=== PATIENT | female | born 1980 | race Caucasian/White ===

== ENCOUNTER 2022-04-21 06:41 | Inpatient (IN) | payer OTHER ==
[~2022-04-21] VITALS: Ht 160 cm; Wt 66.5 kg
[~2022-04-21 06:41] MED LIST: ALBIPROI INH; ALBU90I INH; ALBU90OI; ALBU90OI INH; ALBU90OI6 INH; ALBU90OI61 INH; AMOX500 PO; AZIT250 PO; CEPH500 PO; CODGUAEL PO; DIPH50 PO; DOXY100 PO; ERYES400 PO; HYDACE5 PO; IBUP800 PO; INHALERS; METPRE4DP PO; NAPR500 PO; NAPR550 PO; OXYACE5T PO; PENVK500 PO; PRED10 PO; PRED20 PO; PROACE100 PO; PROCODE120 PO; RXANTBENOT AU; RXCLIN PO; RXNAPNA550 PO; RXOXYACE PO; TRAM50 PO
[2022-04-21 07:04] LABS: BASOPHILS ABSOLUTE AUTO 0.22 K/mm3 (0.00-0.23); BASOPHILS PERCENT AUTO 2 % (0-2); EOSINOPHILS ABSOLUTE AUTO 1.54 K/mm3 (0.00-0.68); EOSINOPHILS PERCENT AUTO 11 % (0-6); Hematocrit 43.7 % (33.0-51.0); Hemoglobin 14.5 g/dL (11.5-16.0); IMMATURE GRAN ABSOLUTE AUTO 0.04 K/mm3 (0.00-0.10); IMMATURE GRAN PERCENT AUTO 0 % (0-1); LYMPHOCYTES ABSOLUTE AUTO 3.73 K/mm3 (0.84-5.20); LYMPHOCYTES PERCENT AUTO 27 % (21-46); MONOCYTES ABSOLUTE AUTO 1.02 K/mm3 (0.16-1.47); MONOCYTES PERCENT AUTO 8 % (4-13); Mean Corpuscular HGB 29.8 pg (26.0-34.0); Mean Corpuscular HGB Conc 33.2 g/dL (31.5-36.5); Mean Corpuscular Volume 90 fL (80-100); Mean Platelet Volume 9.9 fL (9.1-12.4); NEUTROPHILS ABSOLUTE AUTO 7.09 K/mm3 (1.96-9.15); NEUTROPHILS PERCENT AUTO 52 % (41-73); Platelet Count 401 K/mm3 (150-400); RDW Coefficient Variation 12.3 % (11.7-14.2); RDW Standard Deviation 40.8 fL (35.1-46.3); Red Blood Cell Count 4.87 M/mm3 (3.80-5.20); White Blood Cell Count 13.64 K/mm3 (4.00-11.30)
[2022-04-21 07:18] LABS: Bun/Creatinine Ratio 13.6 (12.0-20.0); Calcium, Blood 8.9 mg/dL (8.5-10.1); Creatinine, Blood 0.81 mg/dL (0.40-1.00)
[2022-04-21 10:26] LABS: Influenza A, PCR NEGATIVE (NEGATIVE); Influenza B, PCR NEGATIVE (NEGATIVE); Resp Syncytial Virus, PCR NEGATIVE (NEGATIVE); SARS-Cov-2 (COVID-19) PCR, MMC NEGATIVE (NEGATIVE)
[2022-04-21] MEDS ORDERED: Amoxicillin500 MG PO (13:28)
[2022-04-21] MEDS ORDERED: IPRAT-ALBUT 0.5-3 ML IH (13:29)
--- NOTE | 2022-04-21 19:04 | NUR ---
PATIENT ADMIT TO PCU AROUND 1400. ABLE TO STAND AND TRANSFER TO BED. SOB WITH EXERCTION. NEURO WNL. SOME INTERMIT ANXIETY. DENIES NEED FOR MEDICATION THIS EVENING FOR THIS RN. AT TIMES SLOW TO RESPOND. ON 2L NASAL CANNULA SATING HIGH 90'S. LUNGS SOUNDING TIGHT AND DIM. RESP CALLED FOR BREATHING TREATMENTS. UP TO BSC WITH ONE PERSON ASSIT. TELE SHOWING SINUS TACH WITH HR 100-110'S. DENIES CHEST PAIN/PRESSURE. BP STABLE. PPP. NO SIGNS OF EDEMA. NO ISSUES EATING OR VOIDING. MOM AT BEDSIDE AND UPDATED. PATIENT HAD RECENT DAIGNOSIS OF TOOTH ABSCESS, PO ABX ORDERED PER HOME SCHEDULE. ADMISSION AND MED REC COMPLETED. LR INFUSING X1 BAG PER EMAR. ORIENTED TO ROOM/UNIT. CALL LIGHT IN REACH WILL CONTINUE TO MONITOR AND REPORT OFF TO ONCOMING RN.
--- NOTE | 2022-04-22 00:31 | NUR ---
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 THIS RN WENT TO CHECK ON PATIENT AND SHE WAS TACHYPNEIC WITH RR IN THE HIGH 20'S TO LOW 30'S, TACHYCARDIC WITH RATE IN 120'S, SPO2 96% WITH 2L NC AND ABLE TO SPEAK IN 4-5 WORD SENTENCES. PATIENT REQUESTED A BREATHING TREATMENT-RT NOTIFIED. WHILE WAITING FOR RT, PATIENT BEGAN COUGHING AND SPO2 DECREASED TO 91% AT LOWEST, RR MID TO HIGH 30'S, HR INCREASED TO HIGH 130'S AND SPEAKING IN 1-2 WORD SENTENCES. O2 INCREASED TO 6L NC AND ORDERS RECEIVED FROM DR. ALFORD OF ATIVAN 0.5MG IV X 1. RT ARRIVED TO BEDSIDE WITH ALBUTEROL NEBULIZER TREATMENT. PATIENT BECAME INCREASINGLY ANXIOUS AND CONTINUED WITH RR IN HIGH 30'S. ASTRONAUTICAL ENGINEER CALLED. DR. ALFORD AT BEDSIDE WITH CHARGE NURSE AND NURSING SALES ASSISTANT DISPLAYS. ORDERS RECEIVED FOR BIPAP, SECOND DOSE OF ATIVAN 0.5MG IV X 1, SOLUMEDROL 125MG IV X 1, AND HOUR LONG BREATHING TREATMENT. AT THIS TIME, DR. SANDS ARRIVED TO BEDSIDE TO TAKE OVER FROM DR. ALFORD. PATIENT BEGAN CALMING DOWN, SPO2 INCREASED TO 98-100%, RR DOWN TO MID TO HIGH 20'S, HR DECREASED TO 120'S, NODS HEAD "YES" WHEN ASKED IF SHE IS FEELING MORE EASE OF BREATHING. DR. SANDS ORDERED PATIENT TO BE MOVED TO ICU, BUT LATER RETRACTED THIS ORDER DUE TO PATIENT IMPROVEMENT. NEW ORDERS OBTAINED FOR ATIVAN 0.5MG IV Q4H PRN FOR ANXIETY. PATIENT RESTING QUIETLY IN BED WITH BIPAP IN PLACE 04/09 45% FIO2, SPO2 100% AND RR 20-21.
--- NOTE | 2022-04-22 06:01 | NUR ---
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
--- NOTE | 2022-04-22 18:37 | NUR ---
Shift Summary Pt alert, oriented x4, calm and coopertive with care. Pt resting in bed, up sba to bathroom. Pt denies pain, chest pain/pressure, sob, nasuea, dizziness and numb/tingling. Pt tele sinus 110-120's, bp stable. Pt started at 3l o2 via nc, titrated down to ra, spo2 >90% t/o shift. Pt receiving po antibiotics, iv steroids. No other acute changes noted. Will conitnue to monitor unitl report given to oncoming rn.
--- NOTE | 2022-04-22 19:40 | NUR ---
ASSESSMENT/ ASSUMED CARE PT SITTING UP IN BED RECEIVING UDN TX FROM RT. LUNG DECREASED WITH END EXP WHEEZE. PT ON ROOMAIR. RESP EVEN. PT C/O SOB WITH COUGH. PT TO BE MED WITH COUGH MED. HEART RATE ELEVATED. DENIES CHEST PAIN OR PRESSURE. BP STABLE. NO EDEMA. IV RIGHT FOREARM DC'D INTACT DUE TO PAIN WITH FLUSHING. IV LEFT HAND SALINE LOCKED, FLUSHED WITHOUT DIFFICULTY. BT+ DENEIS N/V. PT MOVING AND TURNING SELF IN BED. CALL LIGHT AT BEDSIDE.
[2022-04-23 04:23] LABS: Hematocrit 42.3 % (33.0-51.0); Hemoglobin 14.2 g/dL (11.5-16.0); Mean Corpuscular HGB 29.8 pg (26.0-34.0); Mean Corpuscular HGB Conc 33.6 g/dL (31.5-36.5); Mean Corpuscular Volume 89 fL (80-100); Mean Platelet Volume 9.9 fL (9.1-12.4); Platelet Count 363 K/mm3 (150-400); RDW Coefficient Variation 13.1 % (11.7-14.2); RDW Standard Deviation 42.4 fL (35.1-46.3); Red Blood Cell Count 4.77 M/mm3 (3.80-5.20); White Blood Cell Count 25.57 K/mm3 (4.00-11.30)
[2022-04-23 04:42] LABS: Bun/Creatinine Ratio 23.7 (12.0-20.0); Calcium, Blood 9.1 mg/dL (8.5-10.1); Creatinine, Blood 0.63 mg/dL (0.40-1.00); Potassium, Blood 4.1 mmol/L (3.5-5.5)
--- NOTE | 2022-04-23 05:09 | NUR ---
SHIFT SUMMARY PT RESTED QUIETLY DURING THE NIGHT. VSS. PT REMAINED ON ROOMAIR. UP TO THE BATHROOM ADLIB. IV TO RIGHT FOREARM DC'D INTACT. NO ACUTE CHANGE DURING THE NIGHT. REPORT TO THE ON COMING NURSE.
--- NOTE | 2022-04-23 07:53 | NUR ---
Am note Pt alert, orineted x4; anxious but cooperative with care. Pt up sba in room. Pt denies pain, chest pain/pressure, sob, coughing, nausea, dizziness and numb/tingling. Tele sinus tach 100's, bp stable. Spo2 >90% on ra, breahting even and unlabored, denies cough this am, fan continuosly on face. Abd soft, nontender, normoactive bt. No edema noted. Vss. No other acute changes noted. Will continue to monitor.
[2022-04-23] MEDS ORDERED: AIRDUO DIGIHAL1 EAC2 INH (12:48)
[2022-04-23] MEDS ORDERED: PRED20 PO (12:49)
--- NOTE | 2022-04-23 14:18 | NUR ---
Discharge note No acute changes noted t/o shift. Vss. Educated pt on discharge instructions, follow up appointments and prescriptions. Called medications to [facility] in [place], per pt request. Pt educdated to follow up with pcp, Dr Esau Melissa. Pt left on foot.
== END 2022-04-23 14:06 | disposition home or self-care (01) | DRG 189 ==
LOC: ER 06:41 → ERHOLD 09:03 → PCU 09:03
PROVIDERS: Emergency Medicine; ADMIT Internal Medicine
PROC: 5A09357 Assistance with Respiratory Ventilation, Less than 24 Consecutive Hours, Continuous Positive Airway Pressure (ICD-10-PCS; principal; 2022-04-21)
DX: J96.01 Acute respiratory failure with hypoxia (principal); J45.901 Unspecified asthma with (acute) exacerbation; F41.9 Anxiety disorder, unspecified; K04.7 Periapical abscess without sinus; Z20.822 Contact with and (suspected) exposure to COVID-19; Z88.8 Allergy status to other drugs, medicaments and biological substances; Z88.5 Allergy status to narcotic agent; Z91.018 Allergy to other foods; Z79.51 Long term (current) use of inhaled steroids; Z98.51 Tubal ligation status; Z87.891 Personal history of nicotine dependence
CPT/HCPCS: 0241U; 71045; 80048; 85025; 85027; 94640; 94644; 94660; 94664; 94760; 94762; 96365; 96366; 96375; 99285-25; A9270; J1100; J1650; J2060; J2920; J2930; J3475; J7030; J7120